=== PATIENT | male | born 1985 | race Caucasian/White ===

== ENCOUNTER 2016-11-23 19:10 | Emergency (ER) | payer OTHER ==
[~2016-11-23] VITALS: Ht 170.2 cm; Wt 59.5 kg
[2016-11-23 19:15] VITALS: Ht 170.2 cm; Wt 59.5 kg
--- NOTE | 2016-11-23 20:26 | ERD ---
ER Documentation Chief Complaint Date/Time DATE: 11/23/16 TIME: 20:25 Chief Complaint STD check HPI This 31-year-old male patient presents to emergency department for gonorrhea and chlamydia treatment. Reports that his girlfriend has tested positive. Patient denies symptoms. Denies dysuria, hematuria, genital lesion or back pain. ROS All systems reviewed and are negative except as per history of present illness. Medications Home Meds Active Scripts Doxycycline Hyclate* (Doxycycline Hyclate*) 100 Mg Tablet.dr, 100 MG PO BID for 7 Days, TAB Prov:CHERYLE BROWN 11/23/16 Allergies Allergies: Coded Allergies: No Known Allergy (Unverified , 11/23/16) PMhx/Soc History of Surgery: Yes (hernia repair) Anesthesia Reaction: No Hx Neurological Disorder: No Hx Respiratory Disorders: No Hx Cardiac Disorders: No Hx Psychiatric Problems: No Hx Miscellaneous Medical Probl: No Hx Alcohol Use: No Hx Substance Use: No Hx Tobacco Use: Yes Smoking Status: Current every day smoker Physical Exam Vitals Vital Signs Date Time Temp Pulse Resp B/P Pulse Ox O2 Delivery O2 Flow Rate FiO2 11/23/16 19:15 97.8 92 20 102/55 98 Physical Exam Const: Vitals stable, triage notes reviewed well-nourished well-appearing well-hydrated male patient no acute distress Head: Eyes: ENT: Neck: Resp: Respirations even and unlabored, no respiratory distress Cardio: Abd: Abdomen soft nontender nondistended, genitalia evaluation deferred. Patient has no genital complaint Skin: Back: No midline or flank tenderness Ext: Neur: Awake and alert Psych: Normal Mood and Affect Results 24 hrs Laboratory Tests Test 11/23/16 20:45 Urine Color YELLOW Urine Clarity CLOUDY Urine pH 6.0 Urine Specific [place] 1.025 Urine Ketones NEGATIVEmg/dL Urine Nitrite NEGATIVEmg/dL Urine Bilirubin NEGATIVEmg/dL Urine Urobilinogen 1+mg/dL Urine Leukocyte Esterase NEGATIVELeu/ul Urine Microscopic RBC 1/HPF Urine Microscopic WBC 3/HPF Urine Amorphous Crystals MODERATE/HPF Urine Yeast (Budding) MODERATE/HPF Urine Hemoglobin NEGATIVEmg/dL Urine Glucose NEGATIVEmg/dL Urine Total Protein NEGATIVEmg/dl Current Medications Medications (Trade) Dose Ordered Sig/Brandt Route PRN Reason Start Time Stop Time Status Last Admin Dose Admin Ceftriaxone Sodium (Rocephin) 250 mg ONCE ONCE IM 11/23/16 20:30 11/23/16 20:31 DC 11/23/16 20:50 Azithromycin (Zithromax) 1,000 mg ONCE ONCE PO 11/23/16 20:30 11/23/16 20:31 DC 11/23/16 20:49 Urinalysis negative for leukocytosis, positive for yeast urine was sent for culture and sensitivity Procedures/MDM This 31-year-old male patient presents to emergency department for STD treatment reports that his girlfriend has been positive for gonorrhea and chlamydia. Patient denies any symptoms. Plan includes urine for GC and chlamydia, and treatment with 250 mg Rocephin intramuscularly, 1000 mg azithromycin, abstinent until test results return. Discharged home with doxycycline 100 mg p.o. twice daily times 7 days Patient is stable with no new complaints during ER course, clinically there is no current evidence to suggest Acute abdomen, sepsis, urinary tract infection, pyelonephritisor any other emergent condition appearing to require further evaluation or hospitalization. I feel the patient is stable for discharge at this time. I have discussed results, examination findings, the treatment plan with the patient and family present prior to discharge. Indications for emergent reevaluation, side effects of medication were also discussed. All questions were answered. Patient verbalizes understanding and agrees with plan of care. Departure Diagnosis: Primary Impression: STI (sexually transmitted infection) Condition: Good Patient Instructions: If You Think You Have an STD Referrals: [facility] Additional Instructions: Thank you for for coming to [facility] for your care today. Please ask your nurse or provider if you have questions about your care today and do not leave until all your questions have been answered. Please use any medications given as directed and follow-up with your doctor (or the doctor you were referred to) in the next 2-3 days. If you do not have a primary care doctor you may follow up at the [facility] (listed below). You may also use motrin and tylenol as needed for fever and/or pain unless instructed otherwise by your provider or nurse. Indications for more urgent follow-up have been discussed, but you may return to the Emergency Department at ANY time for any worrisome or worsening symptoms. If you have abdominal pain, please know that no test or exam you received is perfect and you should follow up within 8 hours for continued pain. If you had any imaging studies today, such as an X-Ray or CT Scan, these studies will be reviewed later by a radiologist. You will be called if there are important findings that were not identified today, so make sure the contact information you provided at registration is correct. If you received any narcotic pain control medicine today, such as Vicodin, Morphine or Dilaudid, your coordination and judgment may be affected for a number of hours. Please do not drive or operate heavy machinery, and you may want someone to assist you at home. If you were given a prescription for narcotic medication, be aware that it is very addictive- use sparingly and only if necessary. CHERYLE BROWN Nov 23, 2016 20:26
[2016-11-23] MEDS ORDERED: CEFTRIAXONE 250 MG INJ IM ONE (20:30)
[2016-11-23] MEDS ORDERED: AZITHROMYCIN 250 MG TAB PO ONE (20:30)
[2016-11-23 21:14] LABS: ADD UMIC YES; UR AMORPHOUS CRYSTAL MODERATE /HPF (NONE SEEN); UR ASCORBIC ACID NEGATIVE (NEGATIVE); UR BILIRUBIN (Dip) NEGATIVE (NEGATIVE); UR BLOOD (Dip) NEGATIVE (NEGATIVE); UR BUDDING YEAST MODERATE /HPF (NONE SEEN); UR CLARITY CLOUDY (CLEAR); UR COLOR YELLOW (YELLOW); UR GLUCOSE (Dip) NEGATIVE (NEGATIVE); UR KETONES (Dip) NEGATIVE (NEGATIVE); UR LEUKOCYTE ESTERASE (Dip) NEGATIVE Leu/ul (NEGATIVE); UR NITRITE (Dip) NEGATIVE (NEGATIVE); UR RBC 1 /HPF (0-5); UR SPECIFIC GRAVITY (Dip) 1.025 (1.003-1.030); UR TOTAL PROTEIN (Dip) NEGATIVE (NEGATIVE); UR UROBILINOGEN (Dip) 1+ mg/dL (NEGATIVE)
[2016-11-23] MEDS ORDERED: DOXY100T20 PO (22:05)
== END 2016-11-23 22:12 | disposition home or self-care (01) ==
LOC: FTE 19:10
DX: A64 Unspecified sexually transmitted disease (principal); F17.210 Nicotine dependence, cigarettes, uncomplicated
CPT/HCPCS: 81001; 87086; 87591; 96372; J0696; Z7502; Z7610

== ENCOUNTER 2017-05-16 03:37 | Emergency (ER) | END 2017-05-16 08:47 | disposition left against medical advice (07) ==